=== PATIENT | female | born 1985 | race African-American/Black ===

== ENCOUNTER 2022-08-03 13:09 | Emergency (ER) | payer BC ==
[~2022-08-03] VITALS: Ht 170.2 cm; Wt 98.0 kg
[2022-08-03] MEDS ORDERED: SODIUM CHLORIDE 0.9% 1000ML 1,000 ML IV STA (13:31)
[2022-08-03] MEDS ORDERED: KETOROLAC TROMETHAMINE 30 MG/ML VIAL IV STA (13:31)
[2022-08-03] MEDS ORDERED: DEXAMETHASONE SOD PHOS 10 MG/1 ML VIAL IV ONE (13:45)
[2022-08-03] MEDS ORDERED: DIPHENHYDRAMINE HCL INJ 50 MG/ML VIAL IV ONE (13:45)
[2022-08-03] MEDS ORDERED: METOCLOPRAMIDE HCL 10 MG/2ML VIAL IV ONE (13:45)
[2022-08-03 14:09] LABS: BASOPHILS % 0.5 % (0.0-1.0); EOSINOPHILS # (AUTO) 0.4 (0.0-0.4); EOSINOPHILS % 5.6 % (0.0-6.0); HEMATOCRIT 40.1 % (34.2-44.1); HEMOGLOBIN 13.5 g/dL (12.0-16.0); LYMPHOCYTES # (AUTO) 2.4 (1.0-3.2); LYMPHOCYTES % 38.7 % (18.0-39.1); MEAN CORPUSCULAR HEMOGLOBIN 30.7 pg (28-32); MEAN CORPUSCULAR HGB CONC 33.7 g/dL (31-35); MEAN CORPUSCULAR VOLUME 91.1 fL (81-99); MONOCYTES # (AUTO) 0.5 (0.2-0.8); MONOCYTES % 8.5 % (4.4-11.3); NEUTROPHILS # (AUTO) 2.9 (2.1-6.9); NEUTROPHILS % 46.2 % (38.7-80.0); PLATELET COUNT 168 x10e3/uL (140-360); RED CELL DISTRIBUTION WIDTH 13.1 % (11.7-14.4)
[2022-08-03 14:24] LABS: ALBUMIN/GLOBULIN RATIO 1.4 (0.8-2.0); ANION GAP 12.9 mmol/L (8-16); CALCIUM 9.1 mg/dL (8.4-10.2); CREATININE, SERUM 0.95 mg/dL (0.57-1.11); POTASSIUM 3.9 mmol/L (3.5-5.1)
[2022-08-03] MEDS ORDERED: ESGIC 50-325-41 EACH PO (15:18)
[2022-08-03] MEDS ORDERED: DIFLUCAN100 MG PO (15:18)
== END 2022-08-03 15:44 | disposition home or self-care (01) ==
LOC: ER 13:13
DX: J32.9 Chronic sinusitis, unspecified (principal); B48.8 Other specified mycoses; M79.7 Fibromyalgia; Z87.442 Personal history of urinary calculi
CPT/HCPCS: 36415; 70470; 70488; 80053; 85025; 99284; J1100; J1200; J1885; J2765; J7030

== ENCOUNTER 2024-03-13 11:07 | Emergency (ER) | payer BC ==
[~2024-03-13] VITALS: Ht 170.2 cm; Wt 98.0 kg
[~2024-03-13 11:07] MED LIST: DIFLUCAN100 MG PO; ESGIC 50-325-41 EACH PO
[2024-03-13 12:10] LABS: HEMATOCRIT 42.2 % (34.2-44.1); HEMOGLOBIN 13.9 g/dL (12.0-16.0); LYMPHOCYTES # (AUTO) 0.5 (1.0-3.2); MEAN CORPUSCULAR HEMOGLOBIN 30.9 pg (28-32); MEAN CORPUSCULAR HGB CONC 32.9 g/dL (31-35); MEAN CORPUSCULAR VOLUME 93.8 fL (81-99); MONOCYTES # (AUTO) 0.3 (0.2-0.8); MONOCYTES % 8.4 % (4.4-11.3); NEUTROPHILS # (AUTO) 2.6 (2.1-6.9); RED CELL DISTRIBUTION WIDTH 13.4 % (11.7-14.4); WHITE BLOOD COUNT 3.35 x10e3/uL (4.8-10.8)
[2024-03-13 12:11] LABS: PLATELET COUNT 103 x10e3/uL (140-360)
[2024-03-13 12:19] LABS: ALBUMIN 4.1 g/dL (3.5-5.0); ALBUMIN/GLOBULIN RATIO 1.2 (0.8-2.0); ANION GAP 15.4 mmol/L (8-16); BILIRUBIN,TOTAL 0.3 mg/dL (0.2-1.2); CALCIUM 8.9 mg/dL (8.4-10.2); CREATININE, SERUM 1.18 mg/dL (0.57-1.11); POTASSIUM 3.4 mmol/L (3.5-5.1); TOTAL PROTEIN 7.4 g/dL (6.5-8.1)
[2024-03-13] MEDS ORDERED: XOFLUZA80 MG PO (13:14)
[2024-03-13] MEDS: GUAIFENESIN 600MG/DEXTROMETHORPHAN 30MG TABSR PO STA (13:22)
[2024-03-13] MEDS: ACETAMINOPHEN 325 MG TAB PO ONE (13:22)
[2024-03-13] MEDS: SODIUM CHLORIDE 0.9% 1000ML 1,000 ML IV SCH (13:23)
[2024-03-13] MEDS: KETOROLAC TROMETHAMINE 30 MG/ML VIAL IV STA (13:23)
[2024-03-13] MEDS ORDERED: KETOROLAC TROME10 MG PO (14:15)
[2024-03-13 14:30] VITALS: PULSE 83; RESP 25; TEMP 99.9; O2SAT 99
== END 2024-03-13 14:52 | disposition home or self-care (01) ==
LOC: ER 11:50
DX: R50.9 Fever, unspecified (principal); J10.1 Influenza due to other identified influenza virus with other respiratory manifestations; R06.02 Shortness of breath; R05.9 Cough, unspecified; M79.7 Fibromyalgia; Z11.52 Encounter for screening for COVID-19; R94.31 Abnormal electrocardiogram [ECG] [EKG]
CPT/HCPCS: 36415; 71046; 80053; 83605; 84702; 85025; 87040; 87400; 93005; 99284; J1885; J7030; U0002